=== PATIENT | female | born 1995 | race Two or more races ===

== ENCOUNTER 2018-03-12 07:41 | Inpatient (IN) | payer OTHER ==
--- NOTE | 2018-03-12 12:49 | HP ---
General Information - Reason for Visit 38 5/7 weeks in labor. - General Information Maternal Age: 22 Grav: 1 Para: 0 SAB: 0 IEA: 0 Estimated Due Date: 03/21/18 Determined By: LMP Gestational Age in Weeks/Days: 38 5/7 Maternal Blood Type and Rh: O Positive - Results this Serology/RPR Result: Non-Reactive Rubella Result: Immune HBsAg Result: Negative HIV Result: Negative GBS Culture Result: Negative Past Medical History Delivery History: See Records Pertinent Past Medical History: Non-Contributory Pertinent Past Surgical History: None Pertinent Family History: Non-Contributory - Antepartal Records Antepartal Records: Reviewed, Uncomplicated Review of Systems Constitutional: Comfortable CV Complaint: No Respiratory: Shortness of Breath: No Gastrointestinal: No Nausea/Vomiting, Normal Bowel Movement Genitourinary: No Dysuria, No Bleeding, No Leaking Fluid Musculoskeletal: No Complaint, No Epigastric Pain, Contractions Neurological: No Headache, No Visual Changes Movement: Normal Exam Allergies/Adverse Reactions: Allergies No Known Allergies Allergy (Verified 03/12/18 08:21) Temp 100.3 BP 127/80 P 90's RR 16 POx 98% RA Lab Values - Entire Visit: CBC, blood type/screen are pending. - Measurements Height: 4 ft 11 in Weight: 158 lb Weight in lbs: 158.440414 Body Mass Index (BMI): 31.8 Pre- Weight: 128 lb Weight Gained This : 30 lbs and 0 ozs - Exam Breast: Breast Exam Deferred CVA: No CVA Tenderness Extremities: No Edema Heart: Normal Rhythm/Heart Sounds HEENT: No Significant Findings Lungs: Clear Bilaterally Rectal: Rectal Exam Deferred Reflexes: DTR 2+ Thyroid: No Thyromegaly - Abdominal Exam Abdomen Exam: Non-Tender, Fundal Height Consistent with Dates - Ultrasound/Biophysical Profile Biophysical Profile: Normal Reactive NST Targeted Exam Findings See L&D Outpatient Visit Provider Note for Findings: N/A Cervical Exam: 4cm, 5cm Effacement: 50%, 70% Station: -1 Presenting Part: Vertex Membrane Status: Intact Bleeding/Discharge: None EFM Findings - External Monitor Findings Baseline Heart Rate: 140 External Monitor Findings: Accelerations Present Contractions: Irregular, < 45 Seconds Assessment/Plan - Assessment Patient with Uterine contractions and cervical change c/w Labor. - Plan Plan: IV Hydration, Admit - Anticipate Vaginal Delivery - Date/Time of Admission Date of Admission: 03/12/18 Time of Admission: 12:15
[2018-03-12 14:02] LABS: ABS Basophils 0 10^3/ul (0-0.2); ABS Eosinophils 0 10^3/ul (0-0.6); ABS Lymphocytes 0.7 10^3/ul (1.0-4.8); ABS Monocytes 0.4 10^3/ul (0-0.8); ABS Neutrophils 5.4 10^3/ul (1.5-7.7); ABS Nucleated RBC 0 10^3/ul; Eosinophil % 0 % (0-6); Hematocrit 31 % (35-47); Hemoglobin 10.3 g/dl (12.0-16.0); Lymphocyte % 10.8 % (25-47); Mean Corpuscular HGB Conc 33 g/dl (31-36); Mean Corpuscular Hemoglobin 28 pg (27-31); Mean Corpuscular Volume 84 fL (80-97); Mean Platelet Volume 10.1 um3 (7.4-10.4); Nucleated Red Blood Cells % 0.1; Platelet Count 127 10^3/ul (150-450); Red Blood Count 3.68 10^6/ul (4.00-5.40); Red Cell Distribution Width 16 % (10.5-15); White Blood Count 6.5 10^3/ul (3.5-10.8)
== END 2018-03-13 09:10 | disposition home or self-care (01) | DRG 780 ==
LOC: MCHOBOUT 07:41 → MCHOB 09:04
PROVIDERS: ADMIT Obstetrics & Gynecology; ATTEND Obstetrics & Gynecology
DX: O47.1 False labor at or after 37 completed weeks of gestation (principal); Z3A.38 38 weeks gestation of pregnancy
CPT/HCPCS: 36415; 85025; 86850; 86900; 86901; 99215; G0463

== ENCOUNTER 2018-03-15 10:03 | Inpatient (IN) | payer OTHER ==
[~2018-03-15 10:03] MED LIST: Acetaminophen TAB* 325 MG PO SCH
[2018-03-15 12:49] LABS: ABS Basophils 0 10^3/ul (0-0.2); ABS Eosinophils 0 10^3/ul (0-0.6); ABS Lymphocytes 1.7 10^3/ul (1.0-4.8); ABS Monocytes 0.5 10^3/ul (0-0.8); ABS Nucleated RBC 0 10^3/ul; Eosinophil % 0.3 % (0-6); Hematocrit 32 % (35-47); Hemoglobin 10.7 g/dl (12.0-16.0); Lymphocyte % 32.7 % (25-47); Mean Corpuscular HGB Conc 33 g/dl (31-36); Mean Corpuscular Hemoglobin 28 pg (27-31); Mean Corpuscular Volume 84 fL (80-97); Mean Platelet Volume 10.1 um3 (7.4-10.4); Nucleated Red Blood Cells % 0.1; Platelet Count 133 10^3/ul (150-450); Red Blood Count 3.82 10^6/ul (4.00-5.40); Red Cell Distribution Width 16 % (10.5-15); White Blood Count 5.3 10^3/ul (3.5-10.8)
[2018-03-15] MEDS ORDERED: Oxytocin in LR* 20 UNITS/1,000 ML BAG IVPB SCH ×2 (13:00→17:00)
[2018-03-15] MEDS ORDERED: OBEPIDURAL* 250 ML EPIDURAL ONE (14:21)
--- NOTE | 2018-03-15 14:26 | HP ---
General Information - Reason for Visit Rupture of membranes 39 1/7 weeks - General Information Maternal Age: 22 Grav: 1 Para: 0 SAB: 0 IEA: 0 Estimated Due Date: 03/21/18 Determined By: LMP Maternal Blood Type and Rh: O Positive - Results this Serology/RPR Result: Non-Reactive Rubella Result: Immune HBsAg Result: Negative HIV Result: Negative GBS Culture Result: Negative Past Medical History Delivery History: See Records Pertinent Past Medical History: See Records Pertinent Family History: See Records - Antepartal Records Antepartal Records: Reviewed, Complicated by: - late transfer of care Review of Systems Constitutional: Comfortable CV Complaint: No Respiratory: Shortness of Breath: No Gastrointestinal: No Nausea/Vomiting Genitourinary: Leaking Fluid, No Dysuria, No Bleeding Musculoskeletal: No Complaint Neurological: No Headache Movement: Normal Exam Allergies/Adverse Reactions: Allergies No Known Allergies Allergy (Verified 03/12/18 08:21) Vital Signs 03/15/18 03/15/18 10:10 12:00 Temperature 98.4 F 98.2 F Pulse Rate 99 88 Respiratory 16 17 Rate Blood Pressure 121/81 124/78 (mmHg) O2 Sat by Pulse 100 Oximetry Lab Values - Entire Visit: Laboratory Tests 03/15/18 03/15/18 03/15/18 10:55 12:38 12:38 WBC 5.3 RBC 3.82 L Hgb 10.7 L Hct 32 L MCV 84 MCH 28 MCHC 33 RDW 16 H Plt Count 133 L MPV 10.1 Neut % (Auto) 56.9 Lymph % (Auto) 32.7 [place] % (Auto) 9.4 H Eos % (Auto) 0.3 Baso % (Auto) 0.7 Absolute Neuts (auto) 3.0 Absolute Lymphs (auto) 1.7 Absolute Monos (auto) 0.5 Absolute Eos (auto) 0 Absolute Basos (auto) 0 Absolute Nucleated RBC 0 Nucleated RBC % 0.1 Vag Amniotic Fld Detect Positive Blood Type O Positive Antibody Screen Negative - Measurements Height: 4 ft 11 in Weight: 158 lb 5.988 oz Weight in lbs: [phone] Body Mass Index (BMI): 31.9 Pre- Weight: 128 lb Weight Gained This : 30.374 lbs and 0.004 ozs - Exam Breast: Breast Exam Deferred CVA: No CVA Tenderness Extremities: No Edema Heart: Normal Rhythm/Heart Sounds HEENT: No Significant Findings Lungs: Clear Bilaterally Rectal: Rectal Exam Deferred Reflexes: DTR 2+ - Abdominal Exam Abdomen Exam: Non-Tender - Ultrasound/Biophysical Profile Ultrasound Status: Not Done Targeted Exam Findings Cervical Exam: 4cm Effacement: 100% Station: -1 Presenting Part: Vertex Membrane Status: Leaking - mod meconium EFM Findings - External Monitor Findings Baseline Heart Rate: 140 External Monitor Findings: Accelerations Present, No Pattern of Variable or Late Decelerations, Variability Moderate Contractions: Irregular Assessment/Plan - Assessment Pt 22 G1 at 39 1/7 week with prolonged rupture of membranes. Recommend admit and begin pitocin given prolonged rupture of membranes. - Plan Plan: Admit - Anticipate Vaginal Delivery
[2018-03-15] MEDS ORDERED: Phenylephrine IV* 40 MCG/ML 10 ML SYRINGE IV PUSH PRN ×2 (15:24)
[2018-03-15] MEDS ORDERED: Sodium Citrate/Citric Acid* 15 ML UDC PO PRN (15:24)
[2018-03-15] MEDS ORDERED: Famotidine TAB* 20 MG PO PRN (15:24)
[2018-03-15] MEDS ORDERED: EPHEDrine (Pressors)* 50 MG/ML VIAL IV PUSH PRN (15:24)
[2018-03-15] MEDS: EPHEDrine (Pressors)* 50 MG/ML VIAL IV PUSH PRN ×4 (15:55→16:20)
[2018-03-15] MEDS ORDERED: OBEPIDURAL* 250 ML EPIDURAL SCH (16:00)
[2018-03-15] MEDS ORDERED: Sodium Citrate/Citric Acid* 15 ML UDC ONE (16:40)
[2018-03-15] MEDS ORDERED: ceFOXitin 2 GM IVPREMIX* 2 GM/50 ML BAG ONE (16:40)
[2018-03-15] MEDS ORDERED: ceFOXitin 2 GM IVPREMIX* 2 GM/50 ML BAG IVPB ONE (16:50)
[2018-03-15] MEDS ORDERED: Acetaminophen TAB* 325 MG PO PRN (16:51)
[2018-03-15] MEDS ORDERED: Glycerin ADULT SUPP PR PRN (16:51)
[2018-03-15] MEDS ORDERED: Dibucaine 1% 28.35 GM TUBE PR PRN (16:51)
[2018-03-15] MEDS ORDERED: Witch Hazel PAD* JAR TOPICAL PRN (16:51)
[2018-03-15] MEDS ORDERED: Chloroprocaine 3%* 20 ML VIAL ONE (16:52)
[2018-03-15] MEDS ORDERED: OXYTOCIN* 10 UNITS/ML 1 ML VIAL ONE (16:55)
[2018-03-15] MEDS ORDERED: Ondansetron INJ* 2 MG/ML VIAL ONE (16:55)
[2018-03-15] MEDS ORDERED: Dexamethasone IV* 4 MG/ML 1 ML (4 MG) ONE (16:55)
[2018-03-15] MEDS ORDERED: Morphine PF AMP (0.5MG/ML)* 5 MG/10 ML AMP ONE (16:57)
[2018-03-15] MEDS ORDERED: fentaNYL* 50 MCG/ML 2 ML VIAL (100 MCG VIAL) ONE (17:16)
[2018-03-15] MEDS ORDERED: Acetaminophen IV 1GM/100ML * 1,000 MG/100 ML VIAL IVPB ONE (17:35)
[2018-03-15] MEDS ORDERED: oxyCODONE TAB* 5 MG TAB PO PRN ×2 (17:35→17:38)
[2018-03-15] MEDS ORDERED: DiMENhydriNATE IV* 50 MG/ML VIAL IV PUSH PRN ×2 (17:35→17:38)
[2018-03-15] MEDS ORDERED: fentaNYL* 50 MCG/ML 2 ML VIAL (100 MCG VIAL) IV PRN (17:35)
[2018-03-15] MEDS ORDERED: Naloxone* 0.4 MG/ML 1 ML VIAL IV PRN ×2 (17:35→17:38)
[2018-03-15] MEDS ORDERED: Ondansetron INJ* 2 MG/ML VIAL IV PRN (17:38)
[2018-03-15] MEDS ORDERED: Nalbuphine* 10 MG/ML 1 ML VIAL IV PRN (17:38)
[2018-03-15] MEDS ORDERED: Phenylephrine IV* 40 MCG/ML 10 ML SYRINGE ONE (17:42)
[2018-03-15] MEDS ORDERED: Ketorolac INJ* 30 MG/ML 1 ML VIAL IV SCH ×2 (18:00)
[2018-03-15] MEDS ORDERED: EPHEDrine (Pressors)* 50 MG/ML VIAL ONE (21:12)
[2018-03-15] MEDS: Simethicone TAB* 80 MG TAB.CHEW PO SCH (21:50)
[2018-03-15] MEDS: Docusate CAP* 100 MG PO SCH (21:50)
--- NOTE | 2018-03-16 01:06 | PROCNOTE ---
[facility] OB: Delivery Note - Delivery A Date of : 03/15/18 Time of : 17:23 [place] Sex: Male Weight at : 8 lb 1 oz Score 1 Minute: 8 - nuchal cord X 1 Score 5 Minutes: 9 Gestational Age in Weeks and Days at Delivery: 39 Weeks and 1 Days Delivery Method: Primary Section Labor: Induced Details: Urgent Reason for Section: category II FHR tracing Did Patient attempt ?: N/A, No Previous Amniotic Fluid: Meconium Estimated Blood Loss: 600 Anesthesia/Analgesia: CEI for Labor Delivered By: Margaret Plaza - Nursery Level of Nursery: Regular/Bedside - Perineum Perineal Injury: None/Intact Perineal Repair: None - Events Delivery Events of Note: Pitocin During Labor, Supplemental O2 to Mother, ROM > 24 Hours, Internal Scalp EKG, IUPC Use - Additional Delivery Notes Additional Delivery Notes: see dictated OP report
[2018-03-16] MEDS: oxyCODONE/Acetamin 5/325 MG* TAB PO PRN ×4 (06:31→19:56)
[2018-03-16 07:13] LABS: ABS Basophils 0 10^3/ul (0-0.2); ABS Eosinophils 0 10^3/ul (0-0.6); ABS Lymphocytes 1.1 10^3/ul (1.0-4.8); ABS Monocytes 0.8 10^3/ul (0-0.8); ABS Nucleated RBC 0 10^3/ul; Eosinophil % 0 % (0-6); Hematocrit 26 % (35-47); Hemoglobin 8.6 g/dl (12.0-16.0); Lymphocyte % 10.5 % (25-47); Mean Corpuscular HGB Conc 33 g/dl (31-36); Mean Corpuscular Hemoglobin 28 pg (27-31); Mean Corpuscular Volume 84 fL (80-97); Mean Platelet Volume 9.1 um3 (7.4-10.4); Nucleated Red Blood Cells % 0.1; Platelet Count 114 10^3/ul (150-450); Red Cell Distribution Width 16 % (10.5-15); White Blood Count 10.9 10^3/ul (3.5-10.8)
[2018-03-16] MEDS: Ibuprofen TAB* 600 MG PO PRN ×2 (07:54→14:01)
[2018-03-16] MEDS: Docusate CAP* 100 MG PO SCH ×2 (07:55→14:01)
[2018-03-16] MEDS: Simethicone TAB* 80 MG TAB.CHEW PO SCH ×2 (07:55→14:01)
[2018-03-16] MEDS: Ferrous Gluconate TAB* 324 MG TAB PO SCH (07:55)
--- NOTE | 2018-03-16 15:09 | OP ---
DATE OF OPERATION: 03/15/18 - ROOM #102 DATE OF : 89 SURGEON: Margaret Plaza MD MACHINE REPAIRER: Greta Gonzalez CNM ANESTHESIOLOGIST: Yola Peng MD ANESTHESIA: Spinal anesthesia with local. PRE-OP DIAGNOSIS: Category 2 heart tracing, remote from delivery, intrauterine 39-1/7 weeks. POST-OP DIAGNOSIS: Category 2 heart tracing, remote from delivery, intrauterine 39-1/7 weeks, delivered. OPERATIVE PROCEDURE: Primary low transverse section. ESTIMATED BLOOD LOSS: 600 cc. URINE OUTPUT: 1000 cc of clear yellow urine. IV FLUIDS: 1900 cc of crystalloid. FINDINGS: Vertex male infant, direct OA, nuchal cord ____ around feet x1. Apgars were 8 at 1 minute, 9 at 5 minutes. Weight was 8 pounds 1 ounce, moderate meconium. Posterior placenta, 3-vessel cord manually extracted intact. Normal-appearing tubes and ovaries bilaterally. Uterine cavity without evidence of retained membranes of placental tissue. COMPLICATIONS: None apparent. DISPOSITION: Stable to recovery room. DESCRIPTION OF PROCEDURE: The patient was placed in dorsal lithotomy position. Abdomen was prepped and draped in the sterile standard fashion. Anesthesia was tested to appropriate level. The patient was noted to have a small window in the right lower abdominal area and this was infused with 6 cc of 1% lidocaine. Incision was made after confirming adequate anesthesia and after universal protocol for correct procedure, patient, and position. Incision was made with scalpel 2 fingerbreadths above the pubic symphysis. This was carried down through the fascia. Fascia was scored in the midline and extended laterally and superiorly using curved [place] scissors, superiorly and inferiorly from the rectus muscle with blunt and sharp dissection. The peritoneum was then entered bluntly. Bladder blade was inserted. The lower uterine segment was identified, tented up with an Allis, and incision was made with scalpel. This was carried down through to membranes. Meconium was noted. The incision was extended laterally and superiorly using bandage scissors. The infant was found to be direct OA. Head was delivered. Nuchal cord reduced. Anterior posterior shoulder delivered. Cord was reduced around the leg. The cord was allowed to pulse for 60 seconds and then clamped and the was then handed off to awaiting occupational health rn. Appropriate cord blood was obtained. The placenta was then manually extracted. Uterus was exteriorized. The cavity was wiped clean and noted to be free of any placental tissue or membranes. The uterine incision itself was reapproximated in 2 layers, first layer running locked 0 Vicryl, second layer running imbricated 0 Vicryl for complete hemostasis. Tubes and ovaries were noted to have a normal appearance. Uterus was returned intraabdominally. Colic gutters were lavaged. There were 2 areas of peritoneal defect to the right and to the left from the midline peritoneal incisions. These were reapproximated using 3-0 Vicryl and the midline peritoneal incision was reapproximated using 3-0 Vicryl in a running fashion. The subfascial area was visualized. Hemostasis was assured. The fascia was reapproximated using 0 Vicryl x2 in a running fashion. Subcu was lavaged. Hemostasis assured in subcuticular tissue and Camper's fascia was then reapproximated using 3-0 Vicryl in interrupted fashion. Skin was then reapproximated with 4-0 Monocryl. Mastisol and Steri's were then applied. All sponge, instruments, and blade counts were correct throughout the case. The patient tolerated the procedure well and went to recovery room in stable condition. [id number] #: [id number] NOE
[2018-03-16 20:06] LABS: Urine Appearance Clear; Urine Blood 3+ (Negative); Urine Color Yellow; Urine Ketones Negative (Negative); Urine Protein 1+(30 mg/dL) (Negative); Urine Red Blood Cell 3+(>10/hpf) (Absent); Urine Specific Gravity 1.014 (1.010-1.030); Urine Urobilinogen Negative (Negative); Urine White Blood Cell 1+(6-10/hpf) (Absent)
[2018-03-17] MEDS: oxyCODONE/Acetamin 5/325 MG* TAB PO PRN ×5 (02:34→23:04)
[2018-03-17] MEDS: Simethicone TAB* 80 MG TAB.CHEW PO SCH ×5 (02:38→20:04)
[2018-03-17] MEDS: Docusate CAP* 100 MG PO SCH ×4 (02:39→20:04)
[2018-03-17] MEDS: Ibuprofen TAB* 600 MG PO PRN ×3 (07:45→20:04)
[2018-03-17] MEDS: Ferrous Gluconate TAB* 324 MG TAB PO SCH ×2 (07:45→20:04)
[2018-03-17] MEDS ORDERED: Silver Nitrate/Potassium Nitr* 1 EA STICK ONE (13:04)
[2018-03-17] MEDS: IRON PO SCH (14:01)
[2018-03-17] MEDS: PRENATAL VIT PO SCH (14:01)
[2018-03-17] MEDS: FOLIC AC PO SCH (14:01)
[2018-03-18] MEDS: oxyCODONE/Acetamin 5/325 MG* TAB PO PRN ×2 (04:46→13:32)
[2018-03-18 08:00] VITALS: BP 146/90
[2018-03-18] MEDS: Ibuprofen TAB* 600 MG PO PRN ×2 (08:13→14:00)
[2018-03-18] MEDS: Docusate CAP* 100 MG PO SCH (09:47)
[2018-03-18] MEDS: Simethicone TAB* 80 MG TAB.CHEW PO SCH ×2 (09:47→13:31)
[2018-03-18] MEDS: Ferrous Gluconate TAB* 324 MG TAB PO SCH (09:48)
[2018-03-18] MEDS: IRON PO SCH (09:49)
[2018-03-18] MEDS: FOLIC AC PO SCH (09:49)
[2018-03-18] MEDS: PRENATAL VIT PO SCH (09:49)
== END 2018-03-18 15:35 | disposition home or self-care (01) | DRG 766 ==
LOC: MCHOBOUT 10:03 → MCHOB 12:06
PROVIDERS: ADMIT Obstetrics & Gynecology; ATTEND Obstetrics & Gynecology
PROC: 10907ZC Drainage of Amniotic Fluid, Therapeutic from Products of Conception, Via Natural or Artificial Opening (ICD-10-PCS; 2018-03-15)
PROC: 10D00Z1 Extraction of Products of Conception, Low, Open Approach (ICD-10-PCS; principal; 2018-03-15 16:59)
DX: O76 Abnormality in fetal heart rate and rhythm complicating labor and delivery (principal); O42.02 Full-term premature rupture of membranes, onset of labor within 24 hours of rupture; O69.89X0 Labor and delivery complicated by other cord complications, not applicable or unspecified; O77.0 Labor and delivery complicated by meconium in amniotic fluid; Z3A.39 39 weeks gestation of pregnancy; Z37.0 Single live birth
CPT/HCPCS: 36415; 81003; 81015; 84112; 85025; 86850; 86900; 86901; 87077; 87086; 90686; A9270-GY; J0694; J1100; J1885; J2400; J2405; J2590; J3010

== ENCOUNTER 2021-11-01 01:26 | Inpatient (IN) ==
[2021-11-01 02:10] LABS: Hematocrit 35 % (35-47); Hemoglobin 11.9 g/dL (12.0-16.0); Mean Corpuscular HGB Conc 34 g/dL (31-36); Mean Corpuscular Hemoglobin 31 pg (27-31); Mean Corpuscular Volume 92 fL (80-97); Mean Platelet Volume 9.1 fL (7.4-10.4); Platelet Count 153 10^3/uL (150-450); Red Blood Count 3.83 10^6 /uL (3.70-4.87); Red Cell Distribution Width 14 % (10-15); White Blood Count 4.9 10^3/uL (3.5-10.8)
[2021-11-01] MEDS ORDERED: Lactated Ringers 1000 ml BAG 1,000 ML IV ONE ×2 (02:11→05:43)
[2021-11-01] MEDS ORDERED: Buffered Lidocaine 1% SYRIN 1 ml INTRADERM ONE (02:11)
[2021-11-01] MEDS ORDERED: Lactated Ringers 1000 ml BAG 1,000 ML IV SCH ×3 (03:00→21:00)
[2021-11-01] MEDS ORDERED: Oxytocin in LR 20 UNITS/1,000 ML BAG IVPB ONE (03:19)
[2021-11-01] MEDS ORDERED: OBEPIDURAL (200 ML) 200 ML EPIDURAL ONE (03:42)
[2021-11-01 05:14] LABS: Urine Appearance Cloudy; Urine Bilirubin Negative (Negative); Urine Blood Negative (Negative); Urine Color Yellow; Urine Glucose 3+(>=500 mg/dL) (Negative); Urine Ketones Negative (Negative); Urine Nitrite Negative (Negative); Urine Protein Negative (Negative); Urine Specific Gravity 1.012 (1.002-1.030); Urine Urobilinogen Negative (Negative)
[2021-11-01] MEDS: Phenylephrine 40 mcg/mL 10mL (400mcg) SYRINGE IV PUSH PRN ×2 (05:43→05:50)
[2021-11-01] MEDS ORDERED: Sodium Citrate/Citric Acid LIQ 15 ML UDC PO PRN (05:43)
[2021-11-01] MEDS ORDERED: Phenylephrine 40 mcg/mL 10mL (400mcg) SYRINGE IV PUSH PRN (05:43)
[2021-11-01] MEDS ORDERED: EPHEDrine (Pressors) 50 MG/ML VIAL IV PUSH PRN ×2 (05:43)
[2021-11-01] MEDS ORDERED: OBEPIDURAL (200 ML) 200 ML EPIDURAL SCH (06:00)
[2021-11-01] MEDS ORDERED: ceFOXitin 2 GM IVPREMIX 2 GM/50 ML BAG ONE (17:52)
[2021-11-01] MEDS ORDERED: ceFOXitin 2 GM IVPREMIX 2 GM/50 ML BAG IVPB ONE (18:50)
[2021-11-01] MEDS ORDERED: Morphine PF AMP (0.5MG/ML) 5 MG/10 ML AMP ONE (19:06)
[2021-11-01] MEDS ORDERED: fentaNYL 100 mcg/2 ml 50 MCG/ML VIAL ONE (19:06)
[2021-11-01] MEDS ORDERED: Oxytocin 10 UNITS/ML 1 ML VIAL ONE ×2 (19:36→19:48)
[2021-11-01] MEDS ORDERED: Ondansetron 4 mg VIAL 2 MG/ML 2 ml VIAL ONE (20:05)
[2021-11-01] MEDS ORDERED: Naloxone 0.4 mg VIAL 0.4 mg/ml 1 ml VIAL IV PRN (20:51)
[2021-11-01] MEDS ORDERED: Ondansetron 4 mg VIAL 2 MG/ML 2 ml VIAL IV PRN (20:51)
[2021-11-01] MEDS ORDERED: diPHENhydraMINE IV 50 MG/ML 1 ml VIAL (BENADRYL) IV PRN (20:51)
[2021-11-01] MEDS ORDERED: Glycerin ADULT 2.4 gm SUPP PR PRN (20:52)
[2021-11-01] MEDS ORDERED: Witch Hazel PAD JAR TOPICAL PRN (20:52)
[2021-11-02 07:35] LABS: ABS Lymphocytes 1.4 10^3/ul (1.0-4.8); ABS Monocytes 0.8 10^3/ul (0-0.8); ABS Neutrophils 7.4 10^3/ul (1.5-7.7); Eosinophil % 0.1 %; Hematocrit 26 % (35-47); Hemoglobin 8.7 g/dL (12.0-16.0); Lymphocyte % 14.4 %; Mean Corpuscular HGB Conc 33 g/dL (31-36); Mean Corpuscular Hemoglobin 31 pg (27-31); Mean Corpuscular Volume 92 fL (80-97); Mean Platelet Volume 9.1 fL (7.4-10.4); Platelet Count 125 10^3/uL (150-450); Red Blood Count 2.83 10^6 /uL (3.70-4.87); Red Cell Distribution Width 14 % (10-15); White Blood Count 9.6 10^3/uL (3.5-10.8)
[2021-11-04 09:17] VITALS: BP 116/72
== END 2021-11-04 15:40 | disposition home or self-care (01) | DRG 540 ==
LOC: MCHOBOUT 01:26 → MCHOB 01:32
PROVIDERS: ADMIT Obstetrics & Gynecology; ATTEND Obstetrics & Gynecology